=== PATIENT | female | born 1985 | race Hispanic/Latino ===

== ENCOUNTER 2024-07-29 04:09 | Inpatient (IN) | payer SELFPAY ==
[~2024-07-29] VITALS: Ht 160 cm; Wt 102.1 kg
[2024-07-29] MEDS: morPHINE 4 MG SYG IVP ONE ×2 (04:37→06:31)
[2024-07-29] MEDS: DICYCLOMINE HCL 10 MG/5 ML ML PO ONE (04:37)
[2024-07-29] MEDS: LACTATED RINGERS 1000ML 1,000 ML IV ONE (04:37)
[2024-07-29] MEDS: MAG/ALUM/SIMETH 30 ML UDCUP PO ONE (04:37)
[2024-07-29] MEDS: ondanSETRON 4MG INJ IVP ONE (04:37)
[2024-07-29 04:51] LABS: BASOPHILS # (AUTO) 0.03 K/uL (0.00-0.20); BASOPHILS % (AUTO) 0.3 % (0.0-5.0); EOSINOPHILS # (AUTO) 0.26 K/uL (0.00-0.70); EOSINOPHILS % (AUTO) 2.8 % (0.0-8.0); HEMATOCRIT 34.6 % (36-48); IMMATURE GRANULOCYTE ABSOLUTE 0.03 K/uL (0-1); LYMPHOCYTES # (AUTO) 1.8 K/uL (1.0-4.8); LYMPHOCYTES % (AUTO) 18.7 % (21.0-51.0); MEAN CORPUSCULAR HEMOGLOBIN 27.3 pg (27.0-33.0); MEAN CORPUSCULAR HGB CONC 32.4 g/dL (32.0-36.0); MEAN CORPUSCULAR VOLUME 84.2 fL (79-99); MONOCYTES # (AUTO) 0.4 K/uL (0.1-1.0); MONOCYTES % (AUTO) 4.5 % (3.0-13.0); NEUTROPHILS # (AUTO) 6.9 K/uL (1.8-7.7); NEUTROPHILS % (AUTO) 73.4 % (40.0-77.0); PLATELET COUNT (AUTO) 364 K/uL (130-400); RED BLOOD CELL COUNT(AUTO) 4.11 MIL/uL (4.00-5.50); RED CELL DISTRIBUTION WIDTH 16.5 % (11.0-15.5); WHITE BLOOD COUNT (AUTO) 9.4 K/uL (4.8-10.8)
[2024-07-29 05:03] LABS: CREATININE 0.7 mg/dL (0.5-1.0); POTASSIUM 3.8 mmol/L (3.5-5.1)
[2024-07-29 05:07] LABS: ALBUMIN 3.5 g/dL (3.5-5.0); BILIRUBIN,TOTAL 0.1 mg/dL (0.2-1.0); TOTAL PROTEIN, SERUM 7.7 g/dL (6.0-8.3)
--- NOTE | 2024-07-29 05:31 | ERN ---
General Chief Complaint: Abdominal Pain Stated Complaint: C/O ABD PAIN WITH N X V ONSET MIDNIGHT Time Seen by MD: 04:12 History of Present Illness Initial Comments Mrs Reinoso is a 39-year-old female history obesity who presents today with a chief complaint of abdominal pain. Patient reports that she was recently seen in the hospital for cholelithiasis. Patient was told to follow up with her jermaine geon 2 weeks after her discharge. Patient reports today she woke up with a right-handed abdominal pain Allergies: Coded Allergies: No Known Allergies (Unverified Allergy, Unknown, 07/25/24) Home Meds No Active Prescriptions or Reported Meds Past Medical History Past Medical History: Other Medical History Other: HX OF GALLSTONES Past Surgical History: None Female( History) LMP: Jul 29, 2024 ROS Dictation Negative Constitutional: Negative for fever,chills, and weight loss Eyes: Negative for injury, pain,redness, and discharge ENT: Negative for injury,pain or swelling Cardiovascular: Negative for chest pain, palpitations, and edema Respiratory: Negative for shortness of breath, cough, and wheezing, Abdomen/GI: Positive for abdominal pain Back: Negative for injury and pain : Negative for injury, bleeding and discharge MS/Extremity: Negative for injury and deformity Skin: Negative for rash, and discoloration Neuro: Negative for headache, weakness, numbness, tingling, and seizure Psych: Negative for suicide ideation, homicidal ideation, and hallucinations Physical Exam Physical Exam Dictation General: awake, alert, NAD Head/Face: Normocephalic, atraumatic Eyes: PERRL, EOMI, vision at baseline ENT: oral cavity clear, TMs clear, no signs of infection Neck: Trachea midline, supple, Cardiovascular: RRR, normal S1/S2, No MRGs, no JVD Respiratory: CTAB, no respiratory distress, No rales or wheezes Abdomen: Pain with palpation in the right upper quadrant Skin: Warm, dry, normal turgor, no rash MS/Extremity: Pulses equal, no cyanosis, neurovascular intact, FROM Neuro: COAx4, GCS 15, strength 5/5, CN 2-12 intact, normal cerebellar exam, normal gait, Psych: Normal behavior, mood, and affect normal Results Laboratory and Microbiology Lab and Micro Result Laboratory Tests Test 07/29/24 04:41 White Blood Count 9.4 K/uL (4.8-10.8) Red Blood Count 4.11 MIL/uL (4.00-5.50) Hemoglobin 11.2 g/dL (12.0-16.0) L Hematocrit 34.6 % (36-48) L Mean Corpuscular Volume 84.2 fL (79-99) Mean Corpuscular Hemoglobin 27.3 pg (27.0-33.0) Mean Corpuscular Hemoglobin Concent 32.4 g/dL (32.0-36.0) Red Cell Distribution Width 16.5 % (11.0-15.5) H Platelet Count 364 K/uL (130-400) Mean Platelet Volume 10.6 fL (7.5-10.5) H Immature Granulocyte % (Auto) 0.3 % (0-1) Neutrophils (%) (Auto) 73.4 % (40.0-77.0) Lymphocytes (%) (Auto) 18.7 % (21.0-51.0) L Monocytes (%) (Auto) 4.5 % (3.0-13.0) Eosinophils (%) (Auto) 2.8 % (0.0-8.0) Basophils (%) (Auto) 0.3 % (0.0-5.0) Neutrophils # (Auto) 6.9 K/uL (1.8-7.7) Lymphocytes # (Auto) 1.8 K/uL (1.0-4.8) Monocytes # (Auto) 0.4 K/uL (0.1-1.0) Eosinophils # (Auto) 0.26 K/uL (0.00-0.70) Basophils # (Auto) 0.03 K/uL (0.00-0.20) Absolute Immature Granulocyte (auto 0.03 K/uL (0-1) Nucleated Red Blood Cells 0.0 % (0.0-0.19) Sodium Level 138 mmol/L (136-145) Potassium Level 3.8 mmol/L (3.5-5.1) Chloride Level 101 mmol/L (101-111) Carbon Dioxide Level 27 mmol/L (21-32) Blood Urea Nitrogen 14 mg/dL (7-18) Creatinine 0.7 mg/dL (0.5-1.0) Glomerular Filtration Rate Calc 112 mL/min (>90) Random Glucose 113 mg/dL (70-105) H Total Calcium 9.3 mg/dL (8.5-10.1) Total Bilirubin 0.1 mg/dL (0.2-1.0) L Aspartate Amino Transf (AST/SGOT) 31 U/L (10-37) Alanine Aminotransferase (ALT/SGPT) 44 U/L (12-78) Alkaline Phosphatase 91 U/L (50-136) Total Creatine Kinase 106 U/L (21-232) Troponin I High Sensitivity 5 ng/L (4-50) Total Protein 7.7 g/dL (6.0-8.3) Albumin 3.5 g/dL (3.5-5.0) Amylase Level 36 U/L (25-115) Lipase 36 U/L (16-77) Serum Test, Qualitative NEGATIVE (NEGATIVE) MDM Patient at this time has an ultrasound which reconfirms multiple gallstones. Patient will be admitted to the medicine floor for evaluation by General surgery. MDM: Differential diagnosis: Cholelithiasis Rationale: Tests considered and ordered secondary to shared decision making include: labs, ECG and radiology Previous outside records reviewed: Old ER visits. Risk of complication and/or morbidity or mortality of patient management: None Medications-Per medication reconciliation Need for hospitalization: Patient does meet criteria for hospitalization. Need for emergency major/minor surgery: No There are no social concerns with this patient. Prescription drug management Prescriptions will include symptomatic care Patient's prior external medical records from other ER visits were reviewed by me as indicated. Prior testing and results from previous visits were reviewed. Prior tests were taken into account with medical decision making and resource utilization, independent historian/historians were used to obtain complete medical history. I independently interpreted the test that were performed, results were reviewed by me and considered findings on radiology if ordered. Medical management and examination interpretation discussions were had by me with other qualified healthcare professionals as indicated for the patient's care. ED Course Orders Procedure Category Date Status Time Cbc With Differential LAB 07/29/24 Complete 04:22 Comprehensive LAB 07/29/24 Complete Metabolic Panel 04:22 Amylase LAB 07/29/24 Complete 04:22 Troponin I High LAB 07/29/24 Complete Sensitivity 04:22 Us Abdominal Ruq\Ltd US 07/29/24 Taken 04:22 Lactated Ringers PHA 07/29/24 Complete 1000ml (Lactated 04:30 Morphine 4mg Syg PHA 07/29/24 Complete (Morphine 4mg Syg) 04:30 Ondansetron 4mg Inj PHA 07/29/24 Complete (Zofran 4mg Inj) 04:30 Mag/Alum/Simeth 30ml PHA 07/29/24 Complete (Maalox Plus 30ml) 04:30 Dicyclomine Hcl PHA 07/29/24 Complete (Bentyl 10mg/5ml 04:30 Creatine Kinase, Total LAB 07/29/24 Complete 04:22 Lipase LAB 07/29/24 Complete 04:22 Testing, LAB 07/29/24 Complete Serum Hcg 05:11 Current Medications Medications (Trade) Dose Ordered Sig/Masood Route PRN Reason Start Time Stop Time Status Last Admin Dose Admin Al Hydroxide/Mg Hydroxide (MAALox PLUS 30ML) 30 ml ONCE ONCE PO 07/29/24 04:30 07/29/24 04:31 DC 07/29/24 04:37 Dicyclomine HCl (Bentyl 10mg/5ml Syrup) 10 mg ONCE ONCE PO 07/29/24 04:30 07/29/24 04:31 DC 07/29/24 04:37 Lactated Ringer's 1,000 ml @ 0 mls/hr ONCE ONCE IV 07/29/24 04:30 07/29/24 04:31 DC 07/29/24 04:37 Morphine Sulfate (morPHINE 4MG SYG) 4 mg ONCE ONCE IVP 07/29/24 04:30 07/29/24 04:31 DC 07/29/24 04:37 Ondansetron HCl (zoFRAN 4MG INJ) 4 mg ONCE ONCE IVP 07/29/24 04:30 07/29/24 04:31 DC 07/29/24 04:37 Vital Signs Date Time Temp Pulse Resp B/P (MAP) Pulse Ox O2 Delivery O2 Flow Rate FiO2 07/29/24 04:43 98.1 69 24 120/82 100 Room Air* 0 21 07/29/24 04:11 97.9 61 18 138/81 100 Room Air DX & DISP Disposition: Inpatient Departure Impression: Primary Impression: Cholecystitis Condition: Stable Scripts No Active Prescriptions or Reported Meds Referrals: SELF,REFERRAL (PCP) AYAN FRANCIS MD Jul 29, 2024 05:31
--- NOTE | 2024-07-29 06:48 | HP ---
[facility] HISTORY AND PHYSICAL Date of Service: Jul 29, 2024 Time of Service: 06:35 HISTORY OF PRESENT ILLNESS: [ ] 39-year-old female with of with no significant past medical history who presented to the ER with chief complaints of abdominal pain. Patient states her abdominal pain started early this morning: severity severe, location: localized epigastric, state 10/10 on pain scale. Associated symptoms: n/v. She had a similar episode one weeks ago was recently discharged three day ago, GI was deferred on that admission: which resolved without intervention. She denies any fever, chills, shortness of breath, chest pain. melena, hematochezia, and hematemesis. ER physician spoke with general surgeon: will scheduled patient for lap odin and to keep patient NPO. Patient was seen in ER and examined with Dr. Plunkett. REVIEW OF SYSTEMS CONSTITUTIONAL: Denies fevers, chills, or night sweats. No unintentional weight loss reported. NEUROLOGICAL: Denies headache, amaurosis fugax, motor weakness, sensory deficit, vertigo/spinning sensation, gait abnormalities, or tremors. ENT: No hearing loss, otalgia, otorrhea, rhinitis, rhinorrhea, hoarseness, or sore throat. CARDIOVASCULAR: Denies any exertional angina, dyspnea on exertion, orthopnea, paroxysmal nocturnal dyspnea, palpitations, life-threatening arrhythmias, claudication. PULMONARY: Denies any shortness of breath, cough, phlegm/sputum, hemoptysis, pleuritic chest pain. SLEEP: Denies morning headaches, daytime somnolence or napping. Denies difficulty falling asleep, staying asleep, waking from sleep. Denies knowledge of snoring. GASTROINTESTINAL: Denies any type of dysphagia to either liquids or solids. Denies nausea, vomiting, pyrosis, early satiety, abdominal pain, diarrhea, constipation, or changes in stool consistency or caliber. Denies coffee-ground emesis, hematemesis, hematochezia, or melanotic stools. GENITOURINARY: Denies frequency, urgency, nocturia, hematuria or incontinence (Storage/Irritative symptoms.) Low urinary stream, straining to void, urinary intermittency or hesitancy, splitting of the voiding stream, terminal dribbling. ENDOCRINOLOGIC: Denies polyuria, polydipsia, polyphagia or heat/cold intolerances. HEMATOLOGIC: Denies thrombophilia/previous clots, or coagulopathy/bleeding disorders. ONCOLOGIC: Denies personal history of malignancy. DERMATOLOGIC: Denies rashes or pruritus. PSYCHIATRIC: Denies any suicidal or homicidal ideation. Denies hallucinations. PAST MEDICAL HISTORY: [ ] gall stone PAST SURGICAL HISTORY: [ none PAST SOCIAL HISTORY: [ ]Denied any smoking, alcohol, drug use FAMILY HISTORY: [ ]noncontributory Coded Allergies: No Known Allergies (Unverified Allergy, Unknown, 07/25/24) PHYSICAL EXAM GENERAL APPEARANCE: The patient is awake, alert, and oriented, in no acute cardiopulmonary distress. NEUROLOGICAL: Cranial nerves II-XII grossly intact. Motor is 5/5 in bilateral upper and lower extremities proximal to distal. No sensory deficits. HEENT: Face is symmetric. Pupils are equal and reactive. Extraocular movements are intact. NECK: Supple. No JVD. No thyromegaly. No submental, submandibular, pre- /postauricular, occipital or supraclavicular lymphadenopathy. CHEST: Normal chest expansion. No Telemetry. LUNGS: Absence of any rales, rhonchi or any wheezing. CARDIOVASCULAR: Regular. S1 and S2 normal. No appreciable rubs, murmurs or gallops. ABDOMEN: Soft, nontender, and nondistended. There is no rebound, voluntary guarding, or rigidity. : Deferred. No Nieves. EXTREMITIES: Non-edematous and not cyanotic. No clubbing. Good capillary refill. SKIN: No skin breakdown. Vital Sign (Last 24 Hours) 07/29/24 04:43 Temp 98.1 Pulse 69 Resp 24 B/P (MAP) 120/82 Pulse Ox 100 O2 Delivery Room Air* O2 Flow Rate 0 FiO2 21 LABS: Laboratory: Test 07/29/24 04:41 Range/Units White Blood Count 9.4 4.8-10.8 K/uL Red Blood Count 4.11 4.00-5.50 MIL/uL Hemoglobin 11.2 L 12.0-16.0 g/dL Hematocrit 34.6 L 36-48 % Mean Corpuscular Volume 84.2 79-99 fL Mean Corpuscular Hemoglobin 27.3 27.0-33.0 pg Mean Corpuscular Hemoglobin Concent 32.4 32.0-36.0 g/dL Red Cell Distribution Width 16.5 H 11.0-15.5 % Platelet Count 364 130-400 K/uL Mean Platelet Volume 10.6 H 7.5-10.5 fL Immature Granulocyte % (Auto) 0.3 0-1 % Neutrophils (%) (Auto) 73.4 40.0-77.0 % Lymphocytes (%) (Auto) 18.7 L 21.0-51.0 % Monocytes (%) (Auto) 4.5 3.0-13.0 % Eosinophils (%) (Auto) 2.8 0.0-8.0 % Basophils (%) (Auto) 0.3 0.0-5.0 % Neutrophils # (Auto) 6.9 1.8-7.7 K/uL Lymphocytes # (Auto) 1.8 1.0-4.8 K/uL Monocytes # (Auto) 0.4 0.1-1.0 K/uL Eosinophils # (Auto) 0.26 0.00-0.70 K/uL Basophils # (Auto) 0.03 0.00-0.20 K/uL Absolute Immature Granulocyte (auto 0.03 0-1 K/uL Nucleated Red Blood Cells 0.0 0.0-0.19 % Sodium Level 138 136-145 mmol/L Potassium Level 3.8 3.5-5.1 mmol/L Chloride Level 101 101-111 mmol/L Carbon Dioxide Level 27 21-32 mmol/L Blood Urea Nitrogen 14 7-18 mg/dL Creatinine 0.7 0.5-1.0 mg/dL Glomerular Filtration Rate Calc 112 >90 mL/min Random Glucose 113 H 70-105 mg/dL Total Calcium 9.3 8.5-10.1 mg/dL Total Bilirubin 0.1 L 0.2-1.0 mg/dL Aspartate Amino Transf (AST/SGOT) 31 10-37 U/L Alanine Aminotransferase (ALT/SGPT) 44 12-78 U/L Alkaline Phosphatase 91 50-136 U/L Total Creatine Kinase 106 21-232 U/L Troponin I High Sensitivity 5 4-50 ng/L Total Protein 7.7 6.0-8.3 g/dL Albumin 3.5 3.5-5.0 g/dL Amylase Level 36 25-115 U/L Lipase 36 16-77 U/L Serum Test, Qualitative NEGATIVE NEGATIVE DIAGNOSTICS / RADIOLOGY: [ ] ASSESSMENT: Acute cholelithiasis acute intractable abd pain POA PLAN: Admit: surigical floor consult: Dr. Noel general surgeon possible lap odin today versus tomorrow NPO status IVF's: NS at 75 ml/hr Abt's: Zosyn 3.375gm IV q 8 hrs PRN Morphine 2 mg IV q4 hrs. replace electrolytes as needed as per protocol PRN: MEDICATIONS Tylenol 650 mg po every 4 hrs for fever zofran 4 mg IV every 6 hrs for n/v Hydralazine 10 mg IV every 4 hrs systolic pressure > 160 Supportive measures: DVT ppx, GI ppx all questions answered time spent: > 35 min Supervising MD: c/d ADVANCED CARE PLANNING 1. Which of the following were discussed? Hospice Care - Yes / No Therapeutic options - Yes / No Advance Directives - Yes / No Other discussions - 2. Discussed with who? 3. Voluntary nature of this service was explained to the patient? Yes / No 4. Amount of time spent - 5. Reviewed by Physician? (if this service was performed by NPP) Yes / No ATTESTATION BY PHYSICIAN I have seen and examined the patient. I reviewed the documentation, medical decision making, and treatment plan as noted by the mid-level provider above. I agree with the findings and plan of care. SONIA PLUNKETT MD, ELIZABETH NP Jul 29, 2024 06:48
[2024-07-29] MEDS ORDERED: ondanSETRON 4MG INJ IVP PRN (07:00)
[2024-07-29] MEDS ORDERED: PoTASSium chloRIDE 20MEQ/100ML 100 ML IV PRN (07:00)
[2024-07-29] MEDS: 0.9%NACL 1000ML 1,000 ML IV SCH (07:09)
[2024-07-29] MEDS: ZOSYN 3.375GM +NS 50ML IV SCH (07:09)
--- NOTE | 2024-07-29 08:21 | HMCIMG ---
US ABDOMINAL RUQ\E\LTD HISTORY: Abdominal pain COMPARISON: 07/25/2024 TECHNIQUE: Right upper quadrant abdominal ultrasound study was performed. FINDINGS: Liver measured 20.3 cm. The visualized portion of the pancreas is within normal limits. Liver is echogenic consistent with liver parenchymal disease. Gallstones and sludge material are seen in the distended gallbladder. Common duct measures 7 mm. No evidence of gallbladder wall thickening is seen. Right kidney measures 12.9 x 4.5 x 4.8 cm. No hydronephrosis is seen of the right kidney. IMPRESSION: 1. Sludge material and gallstones are seen in the distended gallbladder. Mild ductal dilatation is seen. 2. No hydronephrosis is seen.
[2024-07-29] MEDS: FAMOTIDINE 20MG VIAL IV SCH (08:57)
[2024-07-29 15:05] VITALS: BP 122/83; PULSE 74; RESP 18; TEMP 98.1
[2024-07-29] MEDS: MAGNESIUM 2GM PREMIX 50ML 50 ML IV PRN (15:05)
[2024-07-29] MEDS: acetaMINOPHEN 325 MG TAB PO PRN (16:55)
[2024-07-29 19:20] VITALS: BP 102/57; PULSE 68; RESP 20; TEMP 97.8; O2SAT 100
[2024-07-29 23:01] VITALS: BP 94/59; PULSE 73; RESP 20; TEMP 97.8
[2024-07-30] VITALS (8 sets, daily range): BP systolic 105–117; BP diastolic 65–76; PULSE 63–77; RESP 18–20; TEMP 97.7–98.8; O2SAT 99
--- NOTE | 2024-07-30 08:33 | PN ---
[facility] PROGRESS NOTE Date of Service: Jul 30, 2024 Time of Service: 08:31 SUBJECTIVE: [ ] 39-year-old female with of with no significant past medical history who presented to the ER with chief complaints of abdominal pain. Patient states her abdominal pain started early this morning: severity severe, location: localized epigastric, state 10/10 on pain scale. Associated symptoms: n/v. She had a similar episode one weeks ago was recently discharged three day ago, GI was deferred on that admission: which resolved without intervention. She denies any fever, chills, shortness of breath, chest pain. melena, hematochezia, and hematemesis. ER physician spoke with general surgeon: will scheduled patient for lap odin and to keep patient NPO. 07/30/24 the patient was evaluated by nurse practitioner Palomo he will order a HIDA scan we will follow-up results. Patient remains NPO for now until further surgeon's recommendations. REVIEW OF SYSTEMS CONSTITUTIONAL: Denies fevers, chills, or night sweats. No unintentional weight loss reported. NEUROLOGICAL: Denies headache, amaurosis fugax, motor weakness, sensory deficit, vertigo/spinning sensation, gait abnormalities, or tremors. ENT: No hearing loss, otalgia, otorrhea, rhinitis, rhinorrhea, hoarseness, or sore throat. CARDIOVASCULAR: Denies any exertional angina, dyspnea on exertion, orthopnea, paroxysmal nocturnal dyspnea, palpitations, life-threatening arrhythmias, claudication. PULMONARY: Denies any shortness of breath, cough, phlegm/sputum, hemoptysis, pleuritic chest pain. SLEEP: Denies morning headaches, daytime somnolence or napping. Denies difficulty falling asleep, staying asleep, waking from sleep. Denies knowledge of snoring. GASTROINTESTINAL: Denies any type of dysphagia to either liquids or solids. Denies nausea, vomiting, pyrosis, early satiety, abdominal pain, diarrhea, constipation, or changes in stool consistency or caliber. Denies coffee-ground emesis, hematemesis, hematochezia, or melanotic stools. GENITOURINARY: Denies frequency, urgency, nocturia, hematuria or incontinence (Storage/Irritative symptoms.) Low urinary stream, straining to void, urinary intermittency or hesitancy, splitting of the voiding stream, terminal dribbling. ENDOCRINOLOGIC: Denies polyuria, polydipsia, polyphagia or heat/cold intolerances. HEMATOLOGIC: Denies thrombophilia/previous clots, or coagulopathy/bleeding disorders. ONCOLOGIC: Denies personal history of malignancy. DERMATOLOGIC: Denies rashes or pruritus. PSYCHIATRIC: Denies any suicidal or homicidal ideation. Denies hallucinations. PHYSICAL EXAM GENERAL APPEARANCE: The patient is awake, alert, and oriented, in no acute cardiopulmonary distress. NEUROLOGICAL: Cranial nerves II-XII grossly intact. Motor is 5/5 in bilateral upper and lower extremities proximal to distal. No sensory deficits. HEENT: Face is symmetric. Pupils are equal and reactive. Extraocular movements are intact. NECK: Supple. No JVD. No thyromegaly. No submental, submandibular, pre- /postauricular, occipital or supraclavicular lymphadenopathy. CHEST: Normal chest expansion. No Telemetry. LUNGS: Absence of any rales, rhonchi or any wheezing. CARDIOVASCULAR: Regular. S1 and S2 normal. No appreciable rubs, murmurs or gallops. ABDOMEN: Soft, nontender, and nondistended. There is no rebound, voluntary guarding, or rigidity. : Deferred. No Nieves. EXTREMITIES: Non-edematous and not cyanotic. No clubbing. Good capillary ref ill. SKIN: No skin breakdown. Vital Signs (last 8hr) Date Time Temp Pulse Resp B/P (MAP) Pulse Ox O2 Delivery O2 Flow Rate FiO2 07/30/24 07:00 98.2 66 18 117/73 99 Room Air 07/30/24 03:16 97.7 77 20 105/65 99 Room Air LABS: Laboratory: Test 07/30/24 06:45 07/29/24 04:41 Range/Units Magnesium Level 2.20 1.80-2.40 mg/dL White Blood Count 9.4 4.8-10.8 K/uL Red Blood Count 4.11 4.00-5.50 MIL/uL Hemoglobin 11.2 L 12.0-16.0 g/dL Hematocrit 34.6 L 36-48 % Mean Corpuscular Volume 84.2 79-99 fL Mean Corpuscular Hemoglobin 27.3 27.0-33.0 pg Mean Corpuscular Hemoglobin Concent 32.4 32.0-36.0 g/dL Red Cell Distribution Width 16.5 H 11.0-15.5 % Platelet Count 364 130-400 K/uL Mean Platelet Volume 10.6 H 7.5-10.5 fL Immature Granulocyte % (Auto) 0.3 0-1 % Neutrophils (%) (Auto) 73.4 40.0-77.0 % Lymphocytes (%) (Auto) 18.7 L 21.0-51.0 % Monocytes (%) (Auto) 4.5 3.0-13.0 % Eosinophils (%) (Auto) 2.8 0.0-8.0 % Basophils (%) (Auto) 0.3 0.0-5.0 % Neutrophils # (Auto) 6.9 1.8-7.7 K/uL Lymphocytes # (Auto) 1.8 1.0-4.8 K/uL Monocytes # (Auto) 0.4 0.1-1.0 K/uL Eosinophils # (Auto) 0.26 0.00-0.70 K/uL Basophils # (Auto) 0.03 0.00-0.20 K/uL Absolute Immature Granulocyte (auto 0.03 0-1 K/uL Nucleated Red Blood Cells 0.0 0.0-0.19 % Sodium Level 138 136-145 mmol/L Potassium Level 3.8 3.5-5.1 mmol/L Chloride Level 101 101-111 mmol/L Carbon Dioxide Level 27 21-32 mmol/L Blood Urea Nitrogen 14 7-18 mg/dL Creatinine 0.7 0.5-1.0 mg/dL Glomerular Filtration Rate Calc 112 >90 mL/min Random Glucose 113 H 70-105 mg/dL Total Calcium 9.3 8.5-10.1 mg/dL Total Bilirubin 0.1 L 0.2-1.0 mg/dL Aspartate Amino Transf (AST/SGOT) 31 10-37 U/L Alanine Aminotransferase (ALT/SGPT) 44 12-78 U/L Alkaline Phosphatase 91 50-136 U/L Total Creatine Kinase 106 21-232 U/L Troponin I High Sensitivity 5 4-50 ng/L Total Protein 7.7 6.0-8.3 g/dL Albumin 3.5 3.5-5.0 g/dL Amylase Level 36 25-115 U/L Lipase 36 16-77 U/L Serum Test, Qualitative NEGATIVE NEGATIVE Current Medications Medications (Trade) Dose Ordered Sig/Masood Route PRN Reason Start Time Stop Time Status Last Admin Dose Admin Acetaminophen (TYLenol 325MG TAB) 650 mg Q4H PRN PO TEMPERATURE GREATER THAN 101.5 07/29/24 07:00 08/28/24 06:59 07/29/24 16:55 650 MG Famotidine (Pepcid 20mg Vial) 20 mg DAILY IV 07/29/24 09:00 08/28/24 08:59 07/29/24 08:57 20 MG Magnesium Sulfate 50 ml @ 0 mls/hr PROTOCOL PRN IV low mag level 07/29/24 07:00 08/28/24 06:59 07/29/24 15:05 50 MLS/HR Morphine Sulfate (morPHINE 2MG SYG) 2 mg Q4H PRN IVP SEVERE PAIN (7-10) 07/29/24 07:00 08/05/24 06:59 Ondansetron HCl (zoFRAN 4MG INJ) 4 mg Q6H PRN IVP NAUSEA/VOMITING 07/29/24 07:00 08/28/24 06:59 Piperacillin Sod/ Tazobactam Sod (Zosyn 3.375gm+NS 50ml) 3.375 gm Q8H IV 07/29/24 07:00 08/08/24 06:59 07/30/24 06:55 3.375 GM Potassium Chloride 100 ml @ 50 mls/hr AD PRN IV POTASSIUM PROTOCOL 07/29/24 07:00 08/28/24 06:59 Sodium Chloride 1,000 ml @ 75 mls/hr [id number] IV 07/29/24 07:00 08/28/24 06:59 07/30/24 01:14 75 MLS/HR DIAGNOSTICS / RADIOLOGY: [ ] ASSESSMENT: Acute cholelithiasis acute intractable abd pain POA PLAN: Admit: surigical floor consult: Dr. Noel general surgeon ordered Hida Scan: NPO status IVF's: NS at 75 ml/hr Abt's: Zosyn 3.375gm IV q 8 hrs PRN Morphine 2 mg IV q4 hrs. replace electrolytes as needed as per protocol PRN: MEDICATIONS Tylenol 650 mg po every 4 hrs for fever zofran 4 mg IV every 6 hrs for n/v Hydralazine 10 mg IV every 4 hrs systolic pressure > 160 Supportive measures: DVT ppx, GI ppx all questions answered disposition: waiting for final recommendation from surgery: pending results from HIDA Scan Supervising MD: c/d ATTESTATION BY PHYSICIAN I have seen and examined the patient. I reviewed the documentation, medical decision making, and treatment plan as noted by the mid-level provider above. I agree with the findings and plan of care. SONIA PLUNKETT MD, ELIZABETH NP Jul 30, 2024 08:33
--- NOTE | 2024-07-30 22:48 | HMCIMG ---
NM HIDA WO EF/CCK REASON: cholecystitis. COMPARISON: None TECHNIQUE: Hepatobiliary imaging study was performed with 7 mCi of technetium Choletec through intravenous route. 4 hour delayed images were obtained. FINDINGS: Gallbladder is not seen at 4 hours delay. Normal visualization of bile activity is seen within 1 hour. IMPRESSION: Nonvisualization of gallbladder activity at 4 hours suggestive of acute cholecystitis in the proper clinical setting.
[2024-07-31] VITALS (7 sets, daily range): BP systolic 104–120; BP diastolic 54–75; PULSE 65–72; RESP 18–20; TEMP 97.5–98.4; O2SAT 99–100
[2024-07-31 06:48] LABS: BASOPHILS # (AUTO) 0.04 K/uL (0.00-0.20); BASOPHILS % (AUTO) 0.6 % (0.0-5.0); EOSINOPHILS # (AUTO) 0.26 K/uL (0.00-0.70); EOSINOPHILS % (AUTO) 3.6 % (0.0-8.0); HEMATOCRIT 32.8 % (36-48); IMMATURE GRANULOCYTE ABSOLUTE 0.03 K/uL (0-1); LYMPHOCYTES # (AUTO) 1.1 K/uL (1.0-4.8); LYMPHOCYTES % (AUTO) 15.8 % (21.0-51.0); MEAN CORPUSCULAR HEMOGLOBIN 27.5 pg (27.0-33.0); MEAN CORPUSCULAR HGB CONC 32.3 g/dL (32.0-36.0); MEAN CORPUSCULAR VOLUME 85.2 fL (79-99); MONOCYTES # (AUTO) 0.4 K/uL (0.1-1.0); MONOCYTES % (AUTO) 5.9 % (3.0-13.0); NEUTROPHILS # (AUTO) 5.3 K/uL (1.8-7.7); NEUTROPHILS % (AUTO) 73.7 % (40.0-77.0); PLATELET COUNT (AUTO) 327 K/uL (130-400); RED BLOOD CELL COUNT(AUTO) 3.85 MIL/uL (4.00-5.50); RED CELL DISTRIBUTION WIDTH 16.2 % (11.0-15.5); WHITE BLOOD COUNT (AUTO) 7.2 K/uL (4.8-10.8)
[2024-07-31 06:56] LABS: ALBUMIN 3.1 g/dL (3.5-5.0); BILIRUBIN,TOTAL 0.4 mg/dL (0.2-1.0); CREATININE 0.6 mg/dL (0.5-1.0); POTASSIUM 3.9 mmol/L (3.5-5.1); TOTAL PROTEIN, SERUM 6.9 g/dL (6.0-8.3)
--- NOTE | 2024-07-31 08:30 | PN ---
[facility] PROGRESS NOTE Date of Service: Jul 31, 2024 Time of Service: 08:29 SUBJECTIVE: [ ] 39-year-old female with of with no significant past medical history who presented to the ER with chief complaints of abdominal pain. Patient states her abdominal pain started early this morning: severity severe, location: localized epigastric, state 10/10 on pain scale. Associated symptoms: n/v. She had a similar episode one weeks ago was recently discharged three day ago, GI was deferred on that admission: which resolved without intervention. She denies any fever, chills, shortness of breath, chest pain. melena, hematochezia, and hematemesis. ER physician spoke with general surgeon: will scheduled patient for lap odin and to keep patient NPO. 07/30/24 the patient was evaluated by nurse practitioner Palomo he will order a HIDA scan we will follow-up results. Patient remains NPO for now until further surgeon's recommendations. 07/31/24 patient is seen and examined with Dr. Plunkett. HIDA scan positive for acute cholecystitis. Waiting for surgeon's recommendations. Primary nurse reports no events overnight REVIEW OF SYSTEMS CONSTITUTIONAL: Denies fevers, chills, or night sweats. No unintentional weight loss reported. NEUROLOGICAL: Denies headache, amaurosis fugax, motor weakness, sensory deficit, vertigo/spinning sensation, gait abnormalities, or tremors. ENT: No hearing loss, otalgia, otorrhea, rhinitis, rhinorrhea, hoarseness, or sore throat. CARDIOVASCULAR: Denies any exertional angina, dyspnea on exertion, orthopnea, paroxysmal nocturnal dyspnea, palpitations, life-threatening arrhythmias, claudication. PULMONARY: Denies any shortness of breath, cough, phlegm/sputum, hemoptysis, pleuritic chest pain. SLEEP: Denies morning headaches, daytime somnolence or napping. Denies difficulty falling asleep, staying asleep, waking from sleep. Denies knowledge of snoring. GASTROINTESTINAL: Denies any type of dysphagia to either liquids or solids. De nies nausea, vomiting, pyrosis, early satiety, abdominal pain, diarrhea, constipation, or changes in stool consistency or caliber. Denies coffee-ground emesis, hematemesis, hematochezia, or melanotic stools. GENITOURINARY: Denies frequency, urgency, nocturia, hematuria or incontinence (Storage/Irritative symptoms.) Low urinary stream, straining to void, urinary intermittency or hesitancy, splitting of the voiding stream, terminal dribbling. ENDOCRINOLOGIC: Denies polyuria, polydipsia, polyphagia or heat/cold intolerances. HEMATOLOGIC: Denies thrombophilia/previous clots, or coagulopathy/bleeding disorders. ONCOLOGIC: Denies personal history of malignancy. DERMATOLOGIC: Denies rashes or pruritus. PSYCHIATRIC: Denies any suicidal or homicidal ideation. Denies hallucinations. PHYSICAL EXAM GENERAL APPEARANCE: The patient is awake, alert, and oriented, in no acute cardiopulmonary distress. NEUROLOGICAL: Cranial nerves II-XII grossly intact. Motor is 5/5 in bilateral upper and lower extremities proximal to distal. No sensory deficits. HEENT: Face is symmetric. Pupils are equal and reactive. Extraocular movements are intact. NECK: Supple. No JVD. No thyromegaly. No submental, submandibular, pre- /postauricular, occipital or supraclavicular lymphadenopathy. CHEST: Normal chest expansion. No Telemetry. LUNGS: Absence of any rales, rhonchi or any wheezing. CARDIOVASCULAR: Regular. S1 and S2 normal. No appreciable rubs, murmurs or gallops. ABDOMEN: Soft, nontender, and nondistended. There is no rebound, voluntary guarding, or rigidity. : Deferred. No Nieves. EXTREMITIES: Non-edematous and not cyanotic. No clubbing. Good capillary refill. SKIN: No skin breakdown. Vital Signs (last 8hr) Date Time Temp Pulse Resp B/P (MAP) Pulse Ox O2 Delivery O2 Flow Rate FiO2 07/31/24 07:15 98.4 65 18 104/62 100 Room Air 07/31/24 03:29 98.2 71 18 120/54 98 Room Air LABS: Laboratory: Test 07/31/24 06:24 Range/Units White Blood Count 7.2 4.8-10.8 K/uL Red Blood Count 3.85 L 4.00-5.50 MIL/uL Hemoglobin 10.6 L 12.0-16.0 g/dL Hematocrit 32.8 L 36-48 % Mean Corpuscular Volume 85.2 79-99 fL Mean Corpuscular Hemoglobin 27.5 27.0-33.0 pg Mean Corpuscular Hemoglobin Concent 32.3 32.0-36.0 g/dL Red Cell Distribution Width 16.2 H 11.0-15.5 % Platelet Count 327 130-400 K/uL Mean Platelet Volume 10.7 H 7.5-10.5 fL Immature Granulocyte % (Auto) 0.4 0-1 % Neutrophils (%) (Auto) 73.7 40.0-77.0 % Lymphocytes (%) (Auto) 15.8 L 21.0-51.0 % Monocytes (%) (Auto) 5.9 3.0-13.0 % Eosinophils (%) (Auto) 3.6 0.0-8.0 % Basophils (%) (Auto) 0.6 0.0-5.0 % Neutrophils # (Auto) 5.3 1.8-7.7 K/uL Lymphocytes # (Auto) 1.1 1.0-4.8 K/uL Monocytes # (Auto) 0.4 0.1-1.0 K/uL Eosinophils # (Auto) 0.26 0.00-0.70 K/uL Basophils # (Auto) 0.04 0.00-0.20 K/uL Absolute Immature Granulocyte (auto 0.03 0-1 K/uL Nucleated Red Blood Cells 0.0 0.0-0.19 % Sodium Level 138 136-145 mmol/L Potassium Level 3.9 3.5-5.1 mmol/L Chloride Level 103 101-111 mmol/L Carbon Dioxide Level 27 21-32 mmol/L Blood Urea Nitrogen 12 7-18 mg/dL Creatinine 0.6 0.5-1.0 mg/dL Glomerular Filtration Rate Calc 116 >90 mL/min Random Glucose 99 70-105 mg/dL Total Calcium 8.5 8.5-10.1 mg/dL Magnesium Level 2.00 1.80-2.40 mg/dL Total Bilirubin 0.4 0.2-1.0 mg/dL Aspartate Amino Transf (AST/SGOT) 38 H 10-37 U/L Alanine Aminotransferase (ALT/SGPT) 50 12-78 U/L Alkaline Phosphatase 81 50-136 U/L Total Protein 6.9 6.0-8.3 g/dL Albumin 3.1 L 3.5-5.0 g/dL Current Medications Medications (Trade) Dose Ordered Sig/Masood Route PRN Reason Start Time Stop Time Status Last Admin Dose Admin Acetaminophen (TYLenol 325MG TAB) 650 mg Q4H PRN PO TEMPERATURE GREATER THAN 101.5 07/29/24 07:00 08/28/24 06:59 07/29/24 16:55 650 MG Famotidine (Pepcid 20mg Vial) 20 mg DAILY IV 07/29/24 09:00 08/28/24 08:59 07/30/24 09:58 20 MG Magnesium Sulfate 50 ml @ 0 mls/hr PROTOCOL PRN IV low mag level 07/29/24 07:00 08/28/24 06:59 07/29/24 15:05 50 MLS/HR Morphine Sulfate (morPHINE 2MG SYG) 2 mg Q4H PRN IVP SEVERE PAIN (7-10) 07/29/24 07:00 08/05/24 06:59 Ondansetron HCl (zoFRAN 4MG INJ) 4 mg Q6H PRN IVP NAUSEA/VOMITING 07/29/24 07:00 08/28/24 06:59 Piperacillin Sod/ Tazobactam Sod (Zosyn 3.375gm+NS 50ml) 3.375 gm Q8H IV 07/29/24 07:00 08/08/24 06:59 07/31/24 06:48 3.375 GM Potassium Chloride 100 ml @ 50 mls/hr AD PRN IV POTASSIUM PROTOCOL 07/29/24 07:00 08/28/24 06:59 Sodium Chloride 1,000 ml @ 75 mls/hr [id number] IV 07/29/24 07:00 08/28/24 06:59 07/31/24 05:56 75 MLS/HR DIAGNOSTICS / RADIOLOGY: [ ] ASSESSMENT: Acute cholelithiasis acute intractable abd pain POA PLAN: Admit: surigical floor consult: Dr. Noel general surgeon waiting for recommendations possible lap odin NPO status HIDA scan noted IVF's: NS at 75 ml/hr Abt's: Zosyn 3.375gm IV q 8 hrs PRN Morphine 2 mg IV q4 hrs. replace electrolytes as needed as per protocol PRN: MEDICATIONS Tylenol 650 mg po every 4 hrs for fever zofran 4 mg IV every 6 hrs for n/v Hydralazine 10 mg IV every 4 hrs systolic pressure > 160 Supportive measures: DVT ppx, GI ppx all questions answered disposition: waiting for final recommendation from surgery Supervising MD: c/d ATTESTATION BY PHYSICIAN I have seen and examined the patient. I reviewed the documentation, medical decision making, and treatment plan as noted by the mid-level provider above. I agree with the findings and plan of care. SONIA PLUNKETT MD, ELIZABETH NP Jul 31, 2024 08:30
--- NOTE | 2024-07-31 11:32 | PN ---
This is a 39-year-old female with concerns of acute cholecystitis Interval history This 39-year-old female seen in her room resting comfortably Patient underwent HIDA scan yesterday consistent with cholecystitis Patient is currently NPO Labs unremarkable Patient has pain improving Patient on IV fluids and IV antibiotics Assessment and plan Patient will likely need cholecystectomy this hospitalization Patient to remain NPO for today Continue with IV fluids and IV antibiotics Dr. Mon to be updated in patient's status for scheduling the procedure this week Thank you Vitals/Labs Vital Signs Date Time Temp Pulse Resp B/P (MAP) Pulse Ox O2 Delivery O2 Flow Rate FiO2 07/31/24 07:15 98.4 65 18 104/62 100 Room Air 07/30/24 19:30 0 21 Laboratory Tests 07/31/24 06:24 Medications Current Medications Lactated Ringer's 1,000 ml @ 0 mls/hr ONCE ONCE IV Last administered on 07/29/24at 04:37; Start 07/29/24 at 04:30; Stop 07/29/24 at 04:31; Status DC Morphine Sulfate 4 mg ONCE ONCE IVP Last administered on 07/29/24at 04:37; Start 07/29/24 at 04:30; Stop 07/29/24 at 04:31; Status DC Ondansetron HCl 4 mg ONCE ONCE IVP Last administered on 07/29/24at 04:37; Start 07/29/24 at 04:30; Stop 07/29/24 at 04:31; Status DC Al Hydroxide/Mg Hydroxide 30 ml ONCE ONCE PO Last administered on 07/29/24at 04:37; Start 07/29/24 at 04:30; Stop 07/29/24 at 04:31; Status DC Dicyclomine HCl 10 mg ONCE ONCE PO Last administered on 07/29/24at 04:37; Start 07/29/24 at 04:30; Stop 07/29/24 at 04:31; Status DC Morphine Sulfate 4 mg ONCE ONCE IVP Last administered on 07/29/24at 06:31; Start 07/29/24 at 06:30; Stop 07/29/24 at 06:31; Status DC Piperacillin Sod/ Tazobactam Sod 3.375 gm Q8H IV Last administered on 07/31/24at 06:48; Start 07/29/24 at 07:00; Stop 08/08/24 at 06:59 Acetaminophen 650 mg Q4H PRN PO Last administered on 07/29/24at 16:55; Start 07/29/24 at 07:00; Stop 08/28/24 at 06:59 Ondansetron HCl 4 mg Q6H PRN IVP; Start 07/29/24 at 07:00; Stop 08/28/24 at 06:59 Morphine Sulfate 2 mg Q4H PRN IVP; Start 07/29/24 at 07:00; Stop 08/05/24 at 06:59 Sodium Chloride 1,000 ml @ 75 mls/hr [id number] IV Last administered on 07/31/24at 05:56; Start 07/29/24 at 07:00; Stop 08/28/24 at 06:59 Potassium Chloride 100 ml @ 50 mls/hr AD PRN IV; Start 07/29/24 at 07:00; Stop 08/28/24 at 06:59 Magnesium Sulfate 50 ml @ 0 mls/hr PROTOCOL PRN IV Last administered on 07/29/24at 15:05; Start 07/29/24 at 07:00; Stop 08/28/24 at 06:59 Famotidine 20 mg DAILY IV Last administered on 07/31/24at 09:32; Start 07/29/24 at 09:00; Stop 08/28/24 at 08:59 JAY GRANT Jr. Jul 31, 2024 11:32
[2024-08-01] VITALS (24 sets, daily range): BP systolic 109–149; BP diastolic 64–89; PULSE 67–94; RESP 15–20; TEMP 97.4–98.4; O2SAT 98–100
[2024-08-01 06:41] LABS: BASOPHILS # (AUTO) 0.03 K/uL (0.00-0.20); BASOPHILS % (AUTO) 0.4 % (0.0-5.0); EOSINOPHILS # (AUTO) 0.21 K/uL (0.00-0.70); EOSINOPHILS % (AUTO) 2.6 % (0.0-8.0); HEMATOCRIT 36.4 % (36-48); IMMATURE GRANULOCYTE ABSOLUTE 0.03 K/uL (0-1); LYMPHOCYTES # (AUTO) 1.6 K/uL (1.0-4.8); LYMPHOCYTES % (AUTO) 19.6 % (21.0-51.0); MEAN CORPUSCULAR HEMOGLOBIN 26.6 pg (27.0-33.0); MEAN CORPUSCULAR HGB CONC 31.6 g/dL (32.0-36.0); MEAN CORPUSCULAR VOLUME 84.3 fL (79-99); MONOCYTES # (AUTO) 0.3 K/uL (0.1-1.0); NEUTROPHILS # (AUTO) 5.9 K/uL (1.8-7.7); PLATELET COUNT (AUTO) 429 K/uL (130-400); RED BLOOD CELL COUNT(AUTO) 4.32 MIL/uL (4.00-5.50); RED CELL DISTRIBUTION WIDTH 16.2 % (11.0-15.5)
[2024-08-01 06:56] LABS: ALBUMIN 3.8 g/dL (3.5-5.0); BILIRUBIN,TOTAL 0.4 mg/dL (0.2-1.0); CREATININE 0.9 mg/dL (0.5-1.0); POTASSIUM 3.7 mmol/L (3.5-5.1); TOTAL PROTEIN, SERUM 7.8 g/dL (6.0-8.3)
--- NOTE | 2024-08-01 08:30 | PN ---
[facility] PROGRESS NOTE Date of Service: Aug 01, 2024 Time of Service: 08:30 SUBJECTIVE: [ ] 39-year-old female with of with no significant past medical history who presented to the ER with chief complaints of abdominal pain. Patient states her abdominal pain started early this morning: severity severe, location: localized epigastric, state 10/10 on pain scale. Associated symptoms: n/v. She had a similar episode one weeks ago was recently discharged three day ago, GI was deferred on that admission: which resolved without intervention. She denies any fever, chills, shortness of breath, chest pain. melena, hematochezia, and hematemesis. ER physician spoke with general surgeon: will scheduled patient for lap odin and to keep patient NPO. 07/30/24 the patient was evaluated by nurse practitioner Palomo he will order a HIDA scan we will follow-up results. Patient remains NPO for now until further surgeon's recommendations. 07/31/24 patient is seen and examined with Dr. Jones. HIDA scan positive for acute cholecystitis. Waiting for surgeon's recommendations. Primary nurse reports no events overnight 08/01/24 patient is seen and examined with Dr. Jones. patient is scheduled for lap odin this morning per Dr. Mccurdy; encouraged patient early ambulation and IS uses after surgery. REVIEW OF SYSTEMS CONSTITUTIONAL: Denies fevers, chills, or night sweats. No unintentional weight loss reported. NEUROLOGICAL: Denies headache, amaurosis fugax, motor weakness, sensory deficit, vertigo/spinning sensation, gait abnormalities, or tremors. ENT: No hearing loss, otalgia, otorrhea, rhinitis, rhinorrhea, hoarseness, or sore throat. CARDIOVASCULAR: Denies any exertional angina, dyspnea on exertion, orthopnea, paroxysmal nocturnal dyspnea, palpitations, life-threatening arrhythmias, claudication. PULMONARY: Denies any shortness of breath, cough, phlegm/sputum, hemoptysis, pleuritic chest pain. SLEEP: Denies morning headaches, daytime somnolence or napping. Denies difficulty falling asleep, staying asleep, waking from sleep. Denies knowledge of snoring. GASTROINTESTINAL: Denies any type of dysphagia to either liquids or solids. Denies nausea, vomiting, pyrosis, early satiety, abdominal pain, diarrhea, constipation, or changes in stool consistency or caliber. Denies coffee-ground emesis, hematemesis, hematochezia, or melanotic stools. GENITOURINARY: Denies frequency, urgency, nocturia, hematuria or incontinence (Storage/Irritative symptoms.) Low urinary stream, straining to void, urinary intermittency or hesitancy, splitting of the voiding stream, terminal dribbling. ENDOCRINOLOGIC: Denies polyuria, polydipsia, polyphagia or heat/cold intolerances. HEMATOLOGIC: Denies thrombophilia/previous clots, or coagulopathy/bleeding disorders. ONCOLOGIC: Denies personal history of malignancy. DERMATOLOGIC: Denies rashes or pruritus. PSYCHIATRIC: Denies any suicidal or homicidal ideation. Denies hallucinations. PHYSICAL EXAM GENERAL APPEARANCE: The patient is awake, alert, and oriented, in no acute cardiopulmonary distress. NEUROLOGICAL: Cranial nerves II-XII grossly intact. Motor is 5/5 in bilateral upper and lower extremities proximal to distal. No sensory deficits. HEENT: Face is symmetric. Pupils are equal and reactive. Extraocular movements are intact. NECK: Supple. No JVD. No thyromegaly. No submental, submandibular, pre- /postauricular, occipital or supraclavicular lymphadenopathy. CHEST: Normal chest expansion. No Telemetry. LUNGS: Absence of any rales, rhonchi or any wheezing. CARDIOVASCULAR: Regular. S1 and S2 normal. No appreciable rubs, murmurs or gallops. ABDOMEN: Soft, nontender, and nondistended. There is no rebound, voluntary guarding, or rigidity. : Deferred. No Nieves. EXTREMITIES: Non-edematous and not cyanotic. No clubbing. Good capillary refill. SKIN: No skin breakdown. Vital Signs (last 8hr) Date Time Temp Pulse Resp B/P (MAP) Pulse Ox O2 Delivery O2 Flow Rate FiO2 08/01/24 08:08 97.5 72 18 109/64 100 Room Air 08/01/24 07:30 98 Room Air* 0 21 08/01/24 03:00 97.5 71 20 121/71 100 Room Air LABS: Laboratory: Test 08/01/24 06:28 07/31/24 06:24 Range/Units White Blood Count 8.0 4.8-10.8 K/uL Red Blood Count 4.32 4.00-5.50 MIL/uL Hemoglobin 11.5 L 12.0-16.0 g/dL Hematocrit 36.4 36-48 % Mean Corpuscular Volume 84.3 79-99 fL Mean Corpuscular Hemoglobin 26.6 L 27.0-33.0 pg Mean Corpuscular Hemoglobin Concent 31.6 L 32.0-36.0 g/dL Red Cell Distribution Width 16.2 H 11.0-15.5 % Platelet Count 429 #H 130-400 K/uL Mean Platelet Volume 10.4 7.5-10.5 fL Immature Granulocyte % (Auto) 0.4 0-1 % Neutrophils (%) (Auto) 73.0 40.0-77.0 % Lymphocytes (%) (Auto) 19.6 L 21.0-51.0 % Monocytes (%) (Auto) 4.0 3.0-13.0 % Eosinophils (%) (Auto) 2.6 0.0-8.0 % Basophils (%) (Auto) 0.4 0.0-5.0 % Neutrophils # (Auto) 5.9 1.8-7.7 K/uL Lymphocytes # (Auto) 1.6 1.0-4.8 K/uL Monocytes # (Auto) 0.3 0.1-1.0 K/uL Eosinophils # (Auto) 0.21 0.00-0.70 K/uL Basophils # (Auto) 0.03 0.00-0.20 K/uL Absolute Immature Granulocyte (auto 0.03 0-1 K/uL Nucleated Red Blood Cells 0.0 0.0-0.19 % Sodium Level 138 136-145 mmol/L Potassium Level 3.7 3.5-5.1 mmol/L Chloride Level 100 L 101-111 mmol/L Carbon Dioxide Level 28 21-32 mmol/L Blood Urea Nitrogen 10 7-18 mg/dL Creatinine 0.9 0.5-1.0 mg/dL Glomerular Filtration Rate Calc 83 >90 mL/min Random Glucose 108 H 70-105 mg/dL Total Calcium 9.5 8.5-10.1 mg/dL Total Bilirubin 0.4 0.2-1.0 mg/dL Aspartate Amino Transf (AST/SGOT) 55 H 10-37 U/L Alanine Aminotransferase (ALT/SGPT) 68 12-78 U/L Alkaline Phosphatase 98 50-136 U/L Total Protein 7.8 6.0-8.3 g/dL Albumin 3.8 3.5-5.0 g/dL Magnesium Level 2.00 1.80-2.40 mg/dL Current Medications Medications (Trade) Dose Ordered Sig/Masood Route PRN Reason Start Time Stop Time Status Last Admin Dose Admin Acetaminophen (TYLenol 325MG TAB) 650 mg Q4H PRN PO TEMPERATURE GREATER THAN 101.5 07/29/24 07:00 08/28/24 06:59 07/29/24 16:55 650 MG Famotidine (Pepcid 20mg Vial) 20 mg DAILY IV 07/29/24 09:00 08/28/24 08:59 07/31/24 09:32 20 MG Magnesium Sulfate 50 ml @ 0 mls/hr PROTOCOL PRN IV low mag level 07/29/24 07:00 08/28/24 06:59 07/29/24 15:05 50 MLS/HR Morphine Sulfate (morPHINE 2MG SYG) 2 mg Q4H PRN IVP SEVERE PAIN (7-10) 07/29/24 07:00 08/05/24 06:59 Ondansetron HCl (zoFRAN 4MG INJ) 4 mg Q6H PRN IVP NAUSEA/VOMITING 07/29/24 07:00 08/28/24 06:59 Piperacillin Sod/ Tazobactam Sod (Zosyn 3.375gm+NS 50ml) 3.375 gm Q8H IV 07/29/24 07:00 08/08/24 06:59 08/01/24 06:37 3.375 GM Potassium Chloride 100 ml @ 50 mls/hr AD PRN IV POTASSIUM PROTOCOL 07/29/24 07:00 08/28/24 06:59 Sodium Chloride 1,000 ml @ 75 mls/hr [id number] IV 07/29/24 07:00 08/28/24 06:59 08/01/24 01:52 75 MLS/HR DIAGNOSTICS / RADIOLOGY: [ ] ASSESSMENT: Acute cholelithiasis acute intractable abd pain POA PLAN: Admit: surigical floor consult: Dr. Noel scheduled for OR today lap odin NPO status encouraged early ambulation and IS usage post surgery IVF's: NS at 75 ml/hr Abt's: Zosyn 3.375gm IV q 8 hrs PRN Morphine 2 mg IV q4 hrs. replace electrolytes as needed as per protocol PRN: MEDICATIONS Tylenol 650 mg po every 4 hrs for fever zofran 4 mg IV every 6 hrs for n/v Hydralazine 10 mg IV every 4 hrs systolic pressure > 160 Supportive measures: DVT ppx, GI ppx all questions answered disposition: waiting for final recommendation from surgery Supervising MD: c/d ATTESTATION BY PHYSICIAN I have seen and examined the patient. I reviewed the documentation, medical decision making, and treatment plan as noted by the mid-level provider above. I agree with the findings and plan of care. SONIA JONES MD, ELIZABETH NP Aug 01, 2024 08:30
[2024-08-01] MEDS ORDERED: LIDOCAINE PF 100MG/5ML (2%) SYRINGE 5ML ONE (17:12)
[2024-08-01] MEDS ORDERED: dexaMETHasone SOD PHOSPHATE 4 MG/ML 1ML VIAL ONE (17:12)
[2024-08-01] MEDS ORDERED: rocuRONium bROMide 10MG/1ML 5ML VL ONE ×2 (17:12→17:53)
[2024-08-01] MEDS ORDERED: proPOFol 10 MG/ML 20ML VIAL IV ONE (17:12)
[2024-08-01] MEDS ORDERED: MIDAZOLAM HCL 1 MG/ML 2ML VIAL ONE (17:13)
[2024-08-01] MEDS ORDERED: FENTanyl CITRate PF 50 MCG/1 ML 2ML VIAL ONE (17:13)
[2024-08-01] MEDS ORDERED: ondanSETRON 4MG INJ ONE (17:32)
[2024-08-01] MEDS ORDERED: BUPIvacaine/PF 0.25% 30ML VIAL IJ ONE (17:38)
[2024-08-01] MEDS ORDERED: EPINEPHrine PF 1MG (1:1,000) 1 MG/ML AMP ONE (17:38)
[2024-08-01] MEDS: ceFAZolin SODIUM 2 GM VIAL IVPB ONE (17:40)
[2024-08-01] MEDS: BUPIvacaine/EPI/PF 0.5% 30ML VIAL IJ ONE ×2 (17:42→18:18)
[2024-08-01] MEDS ORDERED: ceFAZolin SODIUM 1 GM VIAL ONE (17:46)
[2024-08-01] MEDS ORDERED: ROPivacaine 0.5% 5MG/ML 30ML ONE (18:49)
[2024-08-01] MEDS: SUGAMMADEX SODIUM 200 MG/2 ML VIAL IV ONE (18:52)
[2024-08-01] MEDS: MEPERIDINE-PF 25 MG/ML SYG ONE ×2 (19:30→19:32)
[2024-08-01] MEDS: ondanSETRON 4MG INJ ONE (19:31)
--- NOTE | 2024-08-01 20:01 | OP ---
Operative Note: DATE OF PROCEDURE: 08/01/24 SURGEON: SABA MARCELINO MD CAGE SHIFT MANAGER: [[facility] [place] staff] ANESTHESIA: [General] PREOPERATIVE DIAGNOSIS: [Acute cholecystitis] POSTOPERATIVE DIAGNOSIS: [Acute cholecystitis] Findings: [Acutely inflamed gallbladder, marked central obesity characterized by large amount of central adiposity as well as a extremely large fatty liver, gallbladder intrahepatic] PROCEDURE: [Laparoscopic cholecystectomy] ESTIMATED BLOOD LOSS: [40 mL] Indications: This is a 39-year-old female who was admitted for acute cholecystitis imaging studies showed acute cholecystitis as well as sludge in the gallbladder. A laparoscopic cholecystectomy was indicated. Informed consent was obtained prior to the procedure with a discussion about the complications including bleeding, infection, bile leak, bile duct injury and injury to surrounding viscera. Description of Procedure: The patient was taken to the operating room and placed on the operating table in supine position. Next, general anesthesia was induced and they were intubated. Their abdomen was prepped and draped in a sterile fashion. Afterwards a timeout was called. The patient's identity, procedure, preoperative antibiotics and SCDs were all confirmed. I insufflated the abdomen with a Veress needle. Next, I entered the intra-abdominal cavity through a 12 mm epigastric incision using a 12 mm Optiview port with a 0 degree 10 mm scope. I placed a 3 additional ports in the following configuration: A 5 mm supraumbilical port and two 5 mm right subcostal ports. Next, I proceeded to remove the gallbladder. The gallbladder was acutely inflamed and it was intrahepatic. She had marked central obesity characterized by large amount of central adiposity and a very large fatty liver. I used a harmonic scalpel to dissect the gallbladder off the liver bed fossa in a dome down fashion. I dissected down to the infundibulum. I skeletonized the cystic duct. The cystic artery was taken with the harmonic scalpel. I iden tified my critical my critical angle. I used clips on the cystic duct. I transected the cystic duct with the harmonic scalpel and placed the specimen in an Endo Catch bag. The specimen was passed off. I inspected the gallbladder fossa. Hemostasis was obtained with electrocautery. I closed the correction the pneumoperitoneum was evacuated. 0.25% percent Marcaine with epinephrine was injected into the incision sites. Solomons were applied. The sponge needle instrument counts were accurate. The patient was extubated and taken to recovery room in stable condition. SABA MARCELINO MD Aug 01, 2024 20:01
[2024-08-01] MEDS: SIMETHICONE 80 MG TAB.CHEW PO SCH (20:57)
[2024-08-01] MEDS: traMADol HCL 50 MG TABLET PO PRN (20:58)
[2024-08-02] MEDS: morPHINE 2 MG SYG IVP PRN (00:08)
[2024-08-02 00:50] VITALS: BP 134/88; PULSE 80
[2024-08-02 01:50] VITALS: BP 127/83; PULSE 83
[2024-08-02 03:32] VITALS: BP 132/70; PULSE 72; RESP 16; TEMP 98.3
[2024-08-02 08:00] VITALS: O2SAT 100
[2024-08-02 08:33] VITALS: BP 119/66; PULSE 86; RESP 19; TEMP 98.2
--- NOTE | 2024-08-02 08:39 | DS ---
Discharge Summary Hospital Course Summary: 39-year-old female with of with no significant past medical history who presented to the ER with chief complaints of abdominal pain. Patient states her abdominal pain started early this morning: severity severe, location: localized epigastric, state 10/10 on pain scale. Associated symptoms: n/v. She had a similar episode one weeks ago was recently discharged three day ago, GI was deferred on that admission: which resolved without intervention. She denies any fever, chills, shortness of breath, chest pain. melena, hematochezia, and hematemesis. During the course of stay patient was receive empiric antibiotics Zosyn IV and pain management and replace electrolytes as needed basis. Patient underwent lap odin on 08/01/2024 postop day one recuperating well tolerating diet no nausea no vomiting bowel function functioning. Advised patient to follow-up with surgeon in one-week avoid heavy lifting greater than 10 lb for four weeks keep incisions clean and dry wash with soap and water. Pain management [id number] Tylenol. Patient is clinically stable for discharge Procedure(s): Patient Name: Jesi Reinoso Unit Number: [id number] Date of : 1985 Patient Status: Admitted Inpatient Attending Doctor: Aashish Jones MD Operative Note Operative Note: DATE OF PROCEDURE: 08/01/24 SURGEON: SABA BEGUM MD RECRUITMENT INTERNSHIP: [[facility] [place] ANESTHESIA: [General] PREOPERATIVE DIAGNOSIS: [Acute cholecystitis] POSTOPERATIVE DIAGNOSIS: [Acute cholecystitis] Findings: [Acutely inflamed gallbladder, marked central obesity characterized by large amount of central adiposity as well as a extremely large fatty liver, gallbladder intrahepatic] PROCEDURE: [Laparoscopic cholecystectomy] ESTIMATED BLOOD LOSS: [40 mL] Indications: This is a 39-year-old female who was admitted for acute cholecystitis imaging studies showed acute cholecystitis as well as sludge in the gallbladder. A laparoscopic cholecystectomy was indicated. Informed consent was obtained prior to the procedure with a discussion about the complications including bleeding, infection, bile leak, bile duct injury and injury to surrounding viscera. Description of Procedure: The patient was taken to the operating room and placed on the operating table in supine position. Next, general anesthesia was induced and they were intubated. Their abdomen was prepped and draped in a sterile fashion. Afterwards a timeout was called. The patient's identity, procedure, preoperative antibiotics and SCDs were all confirmed. I insufflated the abdomen with a Veress needle. Next, I entered the intra-abdominal cavity through a 12 mm epigastric incision using a 12 mm Optiview port with a 0 degree 10 mm scope. I placed a 3 additional ports in the following configuration: A 5 mm supraumbilical port and two 5 mm right subcostal ports. Next, I proceeded to remove the gallbladder. The gallbladder was acutely inflamed and it was intrahepatic. She had marked central obesity characterized by large amount of central adiposity and a very large fatty liver. I used a harmonic scalpel to dissect the gallbladder off the liver bed fossa in a dome down fashion. I dissected down to the infundibulum. I skeletonized the cystic duct. The cystic artery was taken with the harmonic scalpel. I identified my critical my critical angle. I used clips on the cystic duct. I transected the cystic duct with the harmonic scalpel and placed the specimen in an Endo Catch bag. The specimen was passed off. I inspected the gallbladder fossa. Hemostasis was obtained with electrocautery. I closed the correction the pneumoperitoneum was evacuated. 0.25% percent Marcaine with epinephrine was injected into the incision sites. [place] were applied. The sponge needle instrument counts were accurate. The patient was extubated and taken to recovery room in stable condition. SABA BEGUM MD Aug 01, 2024 20:01 REASON: cholecystitis ORDERING PHYSICIAN: JAY GRANT Jr. PROCEDURE: HIDAWO - NM HIDA WO EF/CCK NM HIDA WO EF/CCK REASON: cholecystitis. COMPARISON: None TECHNIQUE: Hepatobiliary imaging study was performed with 7 mCi of technetium Choletec through intravenous route. 4 hour delayed images were obtained. FINDINGS: Gallbladder is not seen at 4 hours delay. Normal visualization of bile activity is seen within 1 hour. IMPRESSION: Nonvisualization of gallbladder activity at 4 hours suggestive of acute cholecystitis in the proper clinical setting. REASON: Adominal Pain ORDERING PHYSICIAN: AYAN FRANCIS MD PROCEDURE: ABDRUQLTD - US ABDOMINAL RUQ\LTD US ABDOMINAL RUQ\E\LTD HISTORY: Abdominal pain COMPARISON: 07/25/2024 TECHNIQUE: Right upper quadrant abdominal ultrasound study was performed. FINDINGS: Liver measured 20.3 cm. The visualized portion of the pancreas is within normal limits. Liver is echogenic consistent with liver parenchymal disease. Gallstones and sludge material are seen in the distended gallbladder. Common duct measures 7 mm. No evidence of gallbladder wall thickening is seen. Right kidney measures 12.9 x 4.5 x 4.8 cm. No hydronephrosis is seen of the right kidney. IMPRESSION: 1. Sludge material and gallstones are seen in the distended gallbladder. Mild ductal dilatation is seen. 2. No hydronephrosis is seen. Assessment/Plan: Discharged Dx Acute cholelithiasis acute intractable abd pain POA PLAN: ADMISSION DATE: DISCHARGE DATE: August 02/2024 DISPOSITION: Home CONDITION: Stable TOPOGRAPHIC COMPUTATOR(S): General surgeon Dr. Begum FOLLOW UP APPOINTMENT(S): Dr. Begum one-week PROCEDURES: Lap odin IMAGING (S) report attached to summary : HIDA scan, CT abdomen MICROBIOLOGY: report attached to summary; none ACTIVITY: Ad fiona HOME MEDICATIONS none profile NEW MEDICATIONS TEACHING: Emergency instructions: The patient was instructed to present to the nearest Emergency Department or call 911 should their symptoms return or worsen. Home Medications: No Active Prescriptions or Reported Meds Medication Profile: No Active Prescriptions or Reported Meds ATTESTATION BY PHYSICIAN I have seen and examined the patient. I reviewed the documentation, medical decision making, and treatment plan as noted by the mid-level provider above. I agree with the findings and plan of care. AASHISH JONES MD, ELIZABETH NP Aug 02, 2024 08:39
[2024-08-02 08:50] LABS: BASOPHILS # (AUTO) 0.01 K/uL (0.00-0.20); BASOPHILS % (AUTO) 0.1 % (0.0-5.0); HEMATOCRIT 35.5 % (36-48); IMMATURE GRANULOCYTE ABSOLUTE 0.05 K/uL (0-1); LYMPHOCYTES # (AUTO) 1.1 K/uL (1.0-4.8); MEAN CORPUSCULAR HGB CONC 31.8 g/dL (32.0-36.0); MEAN CORPUSCULAR VOLUME 84.7 fL (79-99); MONOCYTES # (AUTO) 0.4 K/uL (0.1-1.0); MONOCYTES % (AUTO) 2.7 % (3.0-13.0); NEUTROPHILS # (AUTO) 12.4 K/uL (1.8-7.7); NEUTROPHILS % (AUTO) 88.8 % (40.0-77.0); PLATELET COUNT (AUTO) 382 K/uL (130-400); RED BLOOD CELL COUNT(AUTO) 4.19 MIL/uL (4.00-5.50); WHITE BLOOD COUNT (AUTO) 13.9 K/uL (4.8-10.8)
[2024-08-02 08:58] LABS: CREATININE 0.6 mg/dL (0.5-1.0); POTASSIUM 3.6 mmol/L (3.5-5.1)
[2024-08-02 09:03] LABS: ALBUMIN 3.5 g/dL (3.5-5.0); BILIRUBIN,TOTAL 0.4 mg/dL (0.2-1.0); MAGNESIUM 1.7 mg/dL (1.80-2.40); TOTAL PROTEIN, SERUM 7.6 g/dL (6.0-8.3)
== END 2024-08-02 10:50 | disposition home or self-care (01) | DRG 419 ==
LOC: EDH 04:09 → EDHIP 06:39 → WSH 15:05 → 3DH 08-01 15:00
PROVIDERS: ADMIT Internal Medicine; ATTEND Internal Medicine
PROC: 0FT44ZZ Resection of Gallbladder, Percutaneous Endoscopic Approach (ICD-10-PCS; principal; 2024-08-01 17:25)
DX: K80.00 Calculus of gallbladder with acute cholecystitis without obstruction (principal); E66.9 Obesity, unspecified; K76.0 Fatty (change of) liver, not elsewhere classified; Z79.899 Other long term (current) drug therapy; Z68.39 Body mass index [BMI] 39.0-39.9, adult
CPT/HCPCS: 36415; 76705; 78226; 80053; 82150; 82550; 83690; 83735; 84484; 84703; 85025; 96365; 96375; A9537; G0378; J0171; J0690; J1100; J2003; J2175; J2250; J2270; J2405; J2543; J2704; J2795; J3010; J3475; J3490; J7030; J7120; A4215; A4221; A4222; A4223; A4663; J0665